=== PATIENT | female | born 1950 | race American Indian/Alaskan Native ===

== ENCOUNTER 2022-04-10 09:13 | Emergency (ER) | payer MEDICARE ==
[2022-04-10 10:34] LABS: Basophils % (Auto) 0.5 % (0.0-1.8); Eosinophils # (Auto) 0.1 K/mm3 (0.0-0.4); Hematocrit 33.1 % (30.3-42.9); Hemoglobin 10.7 gm/dl (10.1-14.3); Lymphocytes # (Auto) 1.8 K/mm3 (1.2-5.4); Mean Corpuscular HGB Conc 32 % (30-34); Mean Corpuscular Volume 81 fl (79-97); Monocytes # (Auto) 0.4 K/mm3 (0.0-0.8); Monocytes % (Auto) 6.5 % (0.0-7.3); Platelet Count 315 K/mm3 (140-440); Red Blood Count 4.07 M/mm3 (3.65-5.03); Red Cell Distribution Width 16.7 % (13.2-15.2)
[2022-04-10 10:38] LABS: INR 0.91 (0.87-1.13)
[2022-04-10 10:46] LABS: Alanine Aminotransferase 8 units/L (7-56); Albumin 3.7 g/dL (3.9-5); BUN/Creatinine Ratio 26; Blood Urea Nitrogen 23 mg/dL (7-17); Hemolysis Index 10
[2022-04-10] MEDS ORDERED: ACETAMINOPHEN 325 MG TAB PO ONE (16:21)
[2022-04-10] MEDS ORDERED: CYCLOBENZAPRINE 10 MG TAB PO ONE (16:21)
--- NOTE | 2022-04-10 16:25 | Emergency Department Report ---
ED Neck Pain/Injury HPI - General Chief Complaint: Neck Pain/Injury Stated Complaint: MALAISE Time Seen by Provider: 04/10/22 10:12 Mode of arrival: Stretcher Limitations: No Limitations - History of Present Illness Initial Comments: Patient is a 71-year-old female presenting to ED with complaint of bilateral neck pain beginning Friday morning. She denies any recent injury to the area. Pain is worsened with movement. Denies fever, chills or focal neurological deficits. - Related Data Previous Rx's Medication Instructions Recorded Last Taken Type Cyclobenzaprine HCl [Flexeril 5 MG 5 mg PO TID #12 tab 04/10/22 Unknown Rx TAB] Allergies Allergy/AdvReac Type Severity Reaction Status Date / Time ibuprofen [From Motrin] Allergy Nausea Verified 04/10/22 09:19 ED Review of Systems ROS: Stated complaint: MALAISE Other details as noted in HPI Comment: All other systems reviewed and negative Constitutional: no symptoms reported Respiratory: denies: cough, shortness of breath, wheezing Cardiovascular: denies: chest pain, palpitations Gastrointestinal: denies: abdominal pain, nausea, diarrhea Genitourinary: denies: urgency, dysuria, discharge Musculoskeletal: other (Neck pain) Skin: denies: rash, lesions Neurological: denies: headache, weakness, paresthesias ED Past Medical Hx - Medications Home Medications: Home Medications Medication Instructions Recorded Confirmed Last Taken Type Cyclobenzaprine HCl [Flexeril 5 MG 5 mg PO TID #12 tab 04/10/22 Unknown Rx TAB] ED Physical Exam - General Limitations: No Limitations General appearance: alert, in no apparent distress - Head Head exam: Present: atraumatic, normocephalic - Neck Neck exam: Present: other (Tense posterior neck muscles bilaterally. Patient unable to turn head to either side due to pain.). Absent: tenderness - Respiratory Respiratory exam: Present: normal lung sounds bilaterally. Absent: respiratory distress - Cardiovascular Cardiovascular Exam: Present: regular rate, normal rhythm, normal heart sounds - GI/Abdominal GI/Abdominal exam: Present: soft. Absent: distended, tenderness - Rectal Rectal exam: Present: deferred - Neurological Exam Neurological exam: Present: alert, oriented X3, CN II-XII intact - Psychiatric Psychiatric exam: Present: normal affect, normal mood - Skin Skin exam: Present: warm, dry, intact, normal color ED Course Vital Signs 04/10/22 09:15 Temperature 98.3 F Pulse Rate 82 Respiratory 16 Rate Blood Pressure 109/79 [Left] O2 Sat by Pulse 100 Oximetry ED Medical Decision Making - Lab Data Result diagrams: 04/10/22 09:58 04/10/22 09:58 - Medical Decision Making History and physical exam findings consistent with likely torticollis. Patient allergic to NSAIDs. Given Flexeril and Tylenol in ED. Will discharge home with Rx for Flexeril. Critical care attestation.: If time is entered above; I have spent that time in minutes in the direct care of this critically ill patient, excluding procedure time. ED Disposition Clinical Impression: Torticollis, acute Disposition: 01 HOME / SELF CARE / HOMELESS Is pt being admited?: No Does the pt Need Aspirin: No Condition: Stable Referrals: PRIMARY CARE, [Primary Care Provider] - 3-5 Days Time of Disposition: 16:26
[2022-04-10 16:30] VITALS: BP 158/69
== END 2022-04-10 19:00 | disposition home or self-care (01) ==
LOC: ED 09:13
DX: M43.6 Torticollis (principal); Z88.6 Allergy status to analgesic agent
CPT/HCPCS: 36415; 80053; 82550; 83735; 84100; 84443; 84484; 85025; 85610; 99283